=== PATIENT | female | born 1990 | race Caucasian/White ===

== ENCOUNTER → 2023-06-25 09:00 | Outpatient (REF) | payer BC, SELFPAY | LOC: PNTC 09:00 | PROVIDERS: ATTENDING PHYSICIAN Obstetrics & Gynecology | DX: O36.8390 Maternal care for abnormalities of the fetal heart rate or rhythm, unspecified trimester, not applicable or unspecified (principal) | CPT/HCPCS: 59025 ==

== ENCOUNTER 2023-09-16 04:01 | Inpatient (IN) | payer BC, SELFPAY ==
[2023-09-16 04:13] VITALS: BP 130/84; BMI 37.4
[2023-09-16 06:05] LABS: % Basophils 0.3 % (0-2); % Lymphocytes 10.2 % (20.5-51.1); % Monocytes 6.2 % (1.7-9.3); % Neutrophils 81.3 % (42.2-75.2); Absolute Eosinophils 0.2 10^3/uL (0-0.7); Absolute Immature Granulocytes 0.2 10^3/uL (0-0.05); Absolute Lymphocytes 1.6 10^3/uL (1.2-3.4); Absolute Neutrophils 12.6 10^3/uL (1.4-6.5); Hematocrit 34.6 % (37.0-47.0); Hemoglobin 11.9 g/dL (12.0-16.0); Mean Corp Hgb Conc. 34.4 g/dL (33.0-37.0); Mean Corpuscular Hgb 30.2 pg (27.0-31.0); Mean Corpuscular Volume 87.8 fL (81.0-99.0); Mean Platelet Volume 10.2 fL (7.4-10.4); Nucleated Red Blood Cells % 0 %; Platelet Count 221 10^3/uL (130-400); Red Blood Cell Count 3.94 10^6/uL (4.20-5.40); Red Cell Dist. Width 13.2 % (11.5-14.5); White Blood Cell Count 15.4 10^3/uL (4.8-10.8)
[2023-09-16] MEDS: LR 1000 IV (09:05)
[2023-09-16] MEDS: PITOCIN 30 UNITS/NSS 500 ML IV (09:05)
[2023-09-16] MEDS: MORPHINE SULFATE 2 MG IV (10:49)
[2023-09-16] MEDS: SUBLIMAZE 100 MCG EPIDURAL (12:32)
[2023-09-16] MEDS: FENTANYL/BUPIVACAINE 100 EPIDURAL ×2 (12:32→20:48)
[2023-09-16 21:59] LABS: INR 1.01; PT 13.3 Sec (11.4-14.6)
[2023-09-16 22:00] LABS: APTT 25.9 Sec (23.4-35.0)
[2023-09-16 22:07] LABS: ALT (SGPT) 16 U/L (0-35); AST (SGOT) 22 U/L (14-36); Albumin 3.3 g/dl (3.5-5.0); Alkaline Phosphatase 173 U/L (38-126); Blood Urea Nitrogen 12 mg/dl (7-17); Calcium 8.9 mg/dl (8.4-10.2); Carbon Dioxide 19 mmol/L (22-30); Chloride 102 mmol/L (98-107); Estimated Creatinine Clearance > 125 ml/min; Glucose 92 mg/dl (70-99); LDH 179 U/L (120-246); Potassium 3.9 mmol/L (3.5-5.1); Sodium 126 mmol/L (135-145); Total Bilirubin 0.4 mg/dl (0.2-1.3); Total Protein 6.1 g/dl (6.3-8.2); Uric Acid 4.5 mg/dl (2.5-6.2); eGFR > 60.00
[2023-09-17] MEDS: LR 1000 IV (02:45)
[2023-09-17 03:28] LABS: Protein/creatinine Ratio 0.3; Urine Protein 18 mg/dl
[2023-09-17] MEDS: PRENATAL PLUS 1 TABLET PO (11:09)
[2023-09-17] MEDS: FEOSOL 325 MG PO (11:09)
[2023-09-17] MEDS: SENOKOT-S 1 TABLET PO (15:52)
[2023-09-17] MEDS: MOTRIN 600 MG PO (22:20)
[2023-09-18 05:58] LABS: Hematocrit 29.6 % (37.0-47.0); Hemoglobin 10.1 g/dL (12.0-16.0)
[2023-09-18] MEDS: FEOSOL 325 MG PO ×2 (08:33→19:48)
[2023-09-18] MEDS: PRENATAL PLUS 1 TABLET PO (08:33)
[2023-09-18] MEDS: SENOKOT-S 1 TABLET PO (17:04)
[2023-09-18] MEDS: MOTRIN 600 MG PO (17:04)
[2023-09-19] MEDS: VALTREX 2000 MG PO ×2 (02:43→13:25)
[2023-09-19] MEDS: PRENATAL PLUS 1 TABLET PO (08:22)
[2023-09-19] MEDS: FEOSOL 325 MG PO (08:22)
--- NOTE | 2023-09-19 12:25 | W.DS.TRANS ---
DC Summary - Take Away Attendant
-
Discharge Instructions:
Discharge Diagnosis/Procedures delivered vaginally
Diet Regular
Activity No strenuous activity
Driving Restrictions As prior to admission
Bathing Restrictions OK to Shower
Instructions:
Stand-Alone Forms: LDRP Hypertensive Disorders
LDRP Vaginal Delivery
Changes to Home Medications: No
Discharge Medications:
DC Medications w/original date entered in [facility]
prenat.vits,gabriella,[id number] 1 tab PO DAILY Supplement 09/16/23
acetaminophen 325 mg tablet 650 mg (2 x 325 mg) PO Q4HPRN PRN mild pain #0 tabs 09/19/23
ferrous sulfate 325 mg (65 mg iron) tablet (FeroSul) 325 mg PO BID #0 tabs 09/19/23
ibuprofen 600 mg tablet 600 mg PO Q6HPRN PRN moderate pain/cramps #0 tabs 09/19/23
sennosides 8.6 mg-docusate sodium 50 mg tablet (Stool Softener-Stimulant Laxative) 1 tab PO DAILYPRN PRN constipation #0 tabs 09/19/23
Home Medication Changes
Pending Results: No
[2023-09-19 14:53] LABS: Syphilis/T. pallidum Ab Reflex Negative (Negative)
== END 2023-09-19 15:04 | disposition home or self-care (01) | DRG 807 ==
LOC: LDRP 04:01
PROVIDERS: Obstetrics & Gynecology; ADMITTING PHYSICIAN Obstetrics & Gynecology
PROC: 10E0XZZ Delivery of Products of Conception, External Approach (ICD-10-PCS; 2023-09-17)
PROC: 0KQM0ZZ Repair Perineum Muscle, Open Approach (ICD-10-PCS; 2023-09-17)
DX: O42.02 Full-term premature rupture of membranes, onset of labor within 24 hours of rupture (principal); Z37.0 Single live birth; Z3A.39 39 weeks gestation of pregnancy; O70.0 First degree perineal laceration during delivery; O69.81X0 Labor and delivery complicated by cord around neck, without compression, not applicable or unspecified; O14.04 Mild to moderate pre-eclampsia, complicating childbirth; O90.81 Anemia of the puerperium; D64.9 Anemia, unspecified
CPT/HCPCS: 88307; 36415; 80053; 82570; 83615; 84156; 84550; 85014; 85018; 85025; 85610; 85730; 86780; 86850; 86900; 86901

== ENCOUNTER 2023-09-23 14:39 | Inpatient (IN) | payer BC, SELFPAY ==
[2023-09-23 15:05] VITALS: BP 148/84; BMI 36.9
[2023-09-23] MEDS: TRANDATE 200 MG PO (15:54)
[2023-09-23 15:56] LABS: Hematocrit 30.3 % (37.0-47.0); Hemoglobin 10.6 g/dL (12.0-16.0); Mean Corpuscular Volume 85.8 fL (81.0-99.0); Mean Platelet Volume 9.3 fL (7.4-10.4); Platelet Count 319 10^3/uL (130-400); Red Blood Cell Count 3.53 10^6/uL (4.20-5.40); Red Cell Dist. Width 13.2 % (11.5-14.5); White Blood Cell Count 9.7 10^3/uL (4.8-10.8)
[2023-09-23 16:09] LABS: ALT (SGPT) 23 U/L (0-35); AST (SGOT) 24 U/L (14-36); Albumin 3.4 g/dl (3.5-5.0); Alkaline Phosphatase 130 U/L (38-126); Blood Urea Nitrogen 16 mg/dl (7-17); Calcium 9.2 mg/dl (8.4-10.2); Carbon Dioxide 25 mmol/L (22-30); Chloride 101 mmol/L (98-107); Estimated Creatinine Clearance > 125 ml/min; Glucose 97 mg/dl (70-99); Potassium 3.8 mmol/L (3.5-5.1); Sodium 133 mmol/L (135-145); Total Bilirubin 0.4 mg/dl (0.2-1.3); Total Protein 6.2 g/dl (6.3-8.2); eGFR > 60.00
[2023-09-23 16:51] LABS: Protein/creatinine Ratio 0.4; Urine Protein 13 mg/dl
[2023-09-23] MEDS: LR 1000 IV (20:32)
[2023-09-23] MEDS: MAGNESIUM SULFATE 100 IV (20:36)
[2023-09-23] MEDS: MAGNESIUM SULFATE 40 GRAM 1000 IV (20:57)
--- NOTE | 2023-09-24 04:47 | DOWNTIME ---
There was a [employer] Client Countersinker Downtime on 09/24/2023 from 0100 to 09/24/2023 at 0439. Downtime documentation of patient's care, including medication administrations, has been reconciled in the electronic record per guidelines. Refer to the
patient's paper chart under the miscellaneous tab to see printed paper medication records and downtime forms.
[2023-09-24] MEDS: LR 1000 IV (08:42)
[2023-09-24] MEDS: PROCARDIA XL (EXTENDED RELEASE) 30 MG PO (10:53)
[2023-09-24] MEDS: TYLENOL 1000 MG PO (10:54)
[2023-09-24 11:02] LABS: Hematocrit 30.6 % (37.0-47.0); Hemoglobin 10.5 g/dL (12.0-16.0); Mean Corp Hgb Conc. 34.3 g/dL (33.0-37.0); Mean Corpuscular Volume 87.4 fL (81.0-99.0); Mean Platelet Volume 8.9 fL (7.4-10.4); Platelet Count 332 10^3/uL (130-400); Red Cell Dist. Width 13.5 % (11.5-14.5); White Blood Cell Count 7.6 10^3/uL (4.8-10.8)
[2023-09-24 11:22] LABS: ALT (SGPT) 21 U/L (0-35); AST (SGOT) 21 U/L (14-36); Albumin 3.4 g/dl (3.5-5.0); Alkaline Phosphatase 135 U/L (38-126); Blood Urea Nitrogen 10 mg/dl (7-17); Calcium 7.1 mg/dl (8.4-10.2); Carbon Dioxide 28 mmol/L (22-30); Chloride 101 mmol/L (98-107); Estimated Creatinine Clearance 116 ml/min; Glucose 111 mg/dl (70-99); Potassium 4.2 mmol/L (3.5-5.1); Sodium 132 mmol/L (135-145); Total Bilirubin 0.3 mg/dl (0.2-1.3); Total Protein 6.1 g/dl (6.3-8.2); eGFR > 60.00
[2023-09-24 11:33] LABS: Magnesium 6.4 mg/dl (1.6-2.3)
[2023-09-24] MEDS: MOTRIN 600 MG PO (14:35)
[2023-09-24] MEDS: MAGNESIUM SULFATE 40 GRAM 1000 IV (16:01)
[2023-09-25] MEDS: PROCARDIA XL (EXTENDED RELEASE) 30 MG PO (07:43)
--- NOTE | 2023-09-25 09:56 | W.DS.TRANS ---
DC Summary - [employer] Supervisor
-
Discharge Instructions:
Discharge Diagnosis/Procedures preeclampsia
Diet Regular
Activity No strenuous activity
Driving Restrictions As prior to admission
Bathing Restrictions None
Instructions:
Stand-Alone Forms: LDRP Hypertensive Disorders
LDRP Vaginal Delivery
Changes to Home Medications: No
Discharge Medications:
DC Medications w/original date entered in [facility]
prenat.vits,gabriella,qax-avkb-sqolo 1 tab PO DAILY Supplement 09/16/23
ferrous sulfate 325 mg (65 mg iron) tablet (FeroSul) 325 mg PO BID #0 tabs 09/19/23
acetaminophen 500 mg tablet (Tylenol Extra Strength) 1,000 mg (2 x 500 mg) PO Q6HPRN PRN headache, mild pain #0 tabs 09/25/23
ibuprofen 600 mg tablet 600 mg PO Q6HPRN PRN moderate pain #0 tabs 09/25/23
nifedipine 30 mg tablet,extended release 30 mg PO DAILY #30 tabs 09/25/23
Home Medication Changes
Pending Results: No
Total time spent discharging patient (in min): 30
== END 2023-09-25 10:20 | disposition home or self-care (01) | DRG 776 ==
LOC: LDRP 14:39
PROVIDERS: Obstetrics & Gynecology; ADMITTING PHYSICIAN Obstetrics & Gynecology
DX: O14.15 Severe pre-eclampsia, complicating the puerperium (principal); O90.81 Anemia of the puerperium; D64.9 Anemia, unspecified
CPT/HCPCS: 80053; 82570; 83735; 84156; 85027; G0378

== ENCOUNTER 2023-09-27 01:49 | Observation (INO) | payer BC, SELFPAY ==
[2023-09-27 02:12] VITALS: BMI 37.4
== END 2023-09-27 05:00 | disposition home or self-care (01) ==
LOC: LDRP 01:49
PROVIDERS: ADMITTING PHYSICIAN Obstetrics & Gynecology
DX: O14.05 Mild to moderate pre-eclampsia, complicating the puerperium (principal); M79.89 Other specified soft tissue disorders
CPT/HCPCS: 93005; G0378